=== PATIENT | female | born 1975 | race Two or more races ===

== ENCOUNTER 2017-05-31 19:40 | Emergency (ER) | payer SELFPAY ==
[~2017-05-31] VITALS: Ht 149.9 cm; Wt 59.9 kg
[~2017-05-31 19:40] MED LIST: OXYC-323 PO
[2017-05-31 20:50] LABS: BASO % 1 % (0-3); EOS % 2 % (0-3); HEMATOCRIT 32.6 % (36.0-47.0); HEMOGLOBIN 9.9 g/dL (12.0-15.5); LYMPH # 2.4 x10^3/uL (1.0-4.8); LYMPH % 30 % (24-48); MEAN CORPUSCULAR HEMOGLOBIN 22 pg (25-35); MEAN CORPUSCULAR HGB CONC 30 g/dL (31-37); MEAN CORPUSCULAR VOLUME 73 fL (79-100); MONO % 8 % (0-9); NEUT % 59 % (31-73); PLATELET COUNT 260 x10^3/uL (140-400); RED BLOOD COUNT 4.44 x10^6/uL (3.50-5.40); RED CELL DISTRIBUTION WIDTH 18.1 % (11.5-14.5); WHITE BLOOD COUNT 8.1 x10^3/uL (4.0-11.0)
[2017-05-31 20:52] LABS: BILIRUBIN,URINE NEGATIVE (NEG); GLUCOSE,URINE NEGATIVE (NEG); NITRITE,URINE NEGATIVE (NEG); PROTEIN,URINE NEGATIVE (NEG-TRACE); UROBILINOGEN,URINE 0.2 mg/dL (0.2 mg/dL)
[2017-05-31 21:00] LABS: CALCIUM 8.8 mg/dL (8.5-10.1); CREATININE 0.9 mg/dL (0.6-1.0); GFR 69.3; POTASSIUM 3.6 mmol/L (3.5-5.1)
[2017-05-31] MEDS ORDERED: IV NORMAL SALINE 1000ML BAG 1,000 ML IV SCH (21:00)
[2017-05-31] MEDS ORDERED: KETOROLAC 30 MG/ML INJ. IV ONE (21:00)
[2017-05-31 21:04] LABS: BACTERIA,URINE FEW /HPF (0-FEW); SQUAMOUS EPITHELIAL CELL,UR MOD /LPF; WBC,URINE OCC /HPF (0-4)
[2017-05-31 21:05] LABS: YEAST,URINE PRESENT /HPF
[2017-05-31 21:05] LABS: ALBUMIN 3.8 g/dL (3.4-5.0); TOTAL BILIRUBIN 0.2 mg/dL (0.2-1.0); TOTAL PROTEIN 7.8 g/dL (6.4-8.2)
[2017-05-31 21:20] LABS: PLT ESTIMATE ADEQUATE (ADEQUATE)
[2017-05-31 21:21] LABS: ANISOCYTOSIS SLIGHT; HYPOCHROMIA SLIGHT; MICROCYTOSIS SLIGHT
[2017-05-31 22:30] VITALS: BP 119/76
--- NOTE | 2017-05-31 23:18 | RAD ---
Pelvic Sonogram Complete Clinical History: Pelvic pain. LMP 04/25/17. Transabdominal scans were performed. The uterus is normal in size. A small nabothian cyst is seen in the cervix. No myometrial mass is seen. The endometrial echo is thickened measuring 1.8 cm AP. Both ovaries are normal in size and show no cystic or solid mass. Blood flow is seen to both ovaries. No free pelvic fluid is seen. IMPRESSION: The endometrial echo is thickened. This is probably physiologic in a patient of this age. The pelvic sonogram is otherwise normal. Electronically signed by: Marian Horner MD (05/31/2017 11:16 PM) [facility]
[2017-05-31] MEDS ORDERED: IBUP-1060 PO (23:47)
--- NOTE | 2017-05-31 23:47 | PHYS DOC ---
Past Medical History Past Medical History: No Pertinent History Past Surgical History: Cholecystectomy, Alcohol Use: None Drug Use: None Adult General Chief Complaint Chief Complaint: ABDOMINAL PAIN HPI HPI Patient is a 41 year old female who complains of low back pain across both sides of her low back, and abdominal pain across her lower abdomen on both sides , for about one week. She has never had pain like this before. She denies UTI symptoms. Her last bowel movement was today. She does have somewhat heavy menstrual periods. She denies fever. Patient has had cholecystectomy and 3 C-sections. Patient is in good general health. She does not have a primary care or [facility] M[facility] OPER[facility] physician. Review of Systems Review of Systems Constitutional: Denies fever or chills [] GI: Denies nausea, vomiting, bloody stools or diarrhea [] : Denies dysuria or hematuria [] Current Medications Current Medications Current Medications Medications (Trade) Dose Ordered Sig/Trina Start Time Stop Time Status Last Admin Dose Admin Ketorolac Tromethamine (Toradol) 30 mg 1X ONCE 05/31/17 21:00 05/31/17 21:01 DC 05/31/17 21:00 30 MG Sodium Chloride 1,000 ml @ 1,000 mls/hr Q1H 05/31/17 21:00 05/31/17 21:59 DC 05/31/17 21:15 1,000 MLS/HR Allergies Allergies Allergies Coded Allergies Type Severity Reaction Last Updated Verified No Known Drug Allergies 11/23/14 No Physical Exam Physical Exam Constitutional: Well developed, well nourished, alert, mentating normally, warm and dry. Appears somewhat uncomfortable. HENT: Normocephalic, atraumatic, bilateral external ears normal, nose normal. [ ] Eyes: conjunctiva normal, no discharge. [] Neck: Normal range of motion, no stridor. [] Cardiovascular:Heart rate regular rhythm, no murmur [] Lungs & Thorax: Bilateral breath sounds clear to auscultation [] Abdomen: Bowel sounds normal, soft, nondistended, no masses, no pulsatile masses. Mildly tender to palpation suprapubic and bilateral lower quadrants, nonlocalized, no rebound or guarding. Back: Patient indicates the area of pain across her lower back at approximately L3/4/5 level. There is no area that is significantly tender to palpation. No overlying skin abnormality or skin color change. Skin: Warm, dry, no erythema, no rash. [] Extremities: No tenderness, no cyanosis, no clubbing, ROM intact, no edema. [] Neurologic: Alert and oriented X 3, normal motor function, normal sensory function, no focal deficits noted. [] Current Patient Data Vital Signs Vital Signs Date Time Temp Pulse Resp B/P (MAP) Pulse Ox O2 Delivery O2 Flow Rate FiO2 05/31/17 22:30 70 18 119/76 (90) 98 Room Air 05/31/17 20:25 98.2 98.2 Lab Values Laboratory Tests Test 05/31/17 20:15 05/31/17 20:25 05/31/17 20:29 Urine Collection Type Unknown Urine Color Yellow Urine Clarity Clear Urine pH 6.0 Urine Specific [place] 1.010 Urine Protein Negative mg/dL (NEG-TRACE) Urine Glucose (UA) Negative mg/dL (NEG) Urine Ketones (Stick) Negative mg/dL (NEG) Urine Blood Negative (NEG) Urine Nitrite Negative (NEG) Urine Bilirubin Negative (NEG) Urine Urobilinogen Dipstick 0.2 mg/dL (0.2 mg/dL) Urine Leukocyte Esterase Negative (NEG) Urine RBC 1-2 /HPF (0-2) Urine WBC Occ /HPF (0-4) Urine Squamous Epithelial Cells Mod /LPF Urine Bacteria Few /HPF (0-FEW) Urine Yeast Present /HPF White Blood Count 8.1 x10^3/uL (4.0-11.0) Red Blood Count 4.44 x10^6/uL (3.50-5.40) Hemoglobin 9.9 g/dL (12.0-15.5) L Hematocrit 32.6 % (36.0-47.0) L Mean Corpuscular Volume 73 fL (79-100) L Mean Corpuscular Hemoglobin 22 pg (25-35) L Mean Corpuscular Hemoglobin Concent 30 g/dL (31-37) L Red Cell Distribution Width 18.1 % (11.5-14.5) H Platelet Count 260 x10^3/uL (140-400) Neutrophils (%) (Auto) 59 % (31-73) Lymphocytes (%) (Auto) 30 % (24-48) Monocytes (%) (Auto) 8 % (0-9) Eosinophils (%) (Auto) 2 % (0-3) Basophils (%) (Auto) 1 % (0-3) Neutrophils # (Auto) 4.8 x10^3uL (1.8-7.7) Lymphocytes # (Auto) 2.4 x10^3/uL (1.0-4.8) Monocytes # (Auto) 0.7 x10^3/uL (0.0-1.1) Eosinophils # (Auto) 0.2 x10^3/uL (0.0-0.7) Basophils # (Auto) 0.0 x10^3/uL (0.0-0.2) Platelet Estimate Adequate (ADEQUATE) Hypochromasia Slight Anisocytosis Slight Microcytosis Slight Sodium Level 141 mmol/L (136-145) Potassium Level 3.6 mmol/L (3.5-5.1) Chloride Level 106 mmol/L (98-107) Carbon Dioxide Level 26 mmol/L (21-32) Anion Gap 9 (6-14) Blood Urea Nitrogen 18 mg/dL (7-20) Creatinine 0.9 mg/dL (0.6-1.0) Estimated GFR (Cockcroft-Gault) 69.3 BUN/Creatinine Ratio 20 (6-20) Glucose Level 76 mg/dL (70-99) Calcium Level 8.8 mg/dL (8.5-10.1) Total Bilirubin 0.2 mg/dL (0.2-1.0) Aspartate Amino Transferase (AST) 17 U/L (15-37) Alanine Aminotransferase (ALT) 18 U/L (14-59) Alkaline Phosphatase 104 U/L (46-116) Total Protein 7.8 g/dL (6.4-8.2) Albumin 3.8 g/dL (3.4-5.0) Albumin/Globulin Ratio 1.0 (1.0-1.7) Lipase 192 U/L (73-393) POC Urine HCG, Qualitative Hcg negative (Negative) Laboratory Tests 05/31/17 20:25 Laboratory Tests 05/31/17 20:25 EKG EKG [] Radiology/Procedures Radiology/Procedures Pelvic ultrasound read by the radiologist. No acute findings.[] Course & Med Decision Making Course & Med Decision Making Pertinent Labs and Imaging studies reviewed. (See chart for details) 41-year-old female who presents with 1 week of bilateral low back pain and bilateral lower quadrant abdominal pain. Exam is relatively unremarkable. I advised the patient we will check some labs, urine, and ultrasound. She is agreeable to that plan. Patient was given IV Toradol and stated she did get some relief of her symptoms. Remarkable only for mild anemia which is likely iron deficient. No other significant lab abnormalities. Pelvic ultrasound unrevealing. I advised the patient to try some ibuprofen for a couple of days and follow-up with her [facility] M[facility] OPER[facility] doctor if not improving or if worse. See instructions for plan. Note, the patient is Vietnamese speaking and the flat screen worker from was used. [] Dragon Disclaimer Dragon Disclaimer This electronic medical record was generated, in whole or in part, using a voice recognition dictation system. Departure Departure Impression: Primary Impression: Abdominal pain, bilateral lower quadrant Disposition: 01 HOME, SELF-CARE Condition: STABLE Referrals: NO PCP (PCP) Patient Instructions: Abdominal Pain (Nonspecific) Additional Instructions: Today, we did not find any cause of your pain. We will try treating your pain with a pain/anti-inflammatory medication for a couple of days. If you get worse , return to emergency. Find out that you are anemic, your iron is probably low. This can happen because of heavy periods. Purchase souw-uvh-otwlijt iron pills and take one daily for iron replacement. Have a MOTO MIX OPERATOR checkup for heavy periods. Scripts Ibuprofen (IBUPROFEN) 800 Mg Tablet 800 MG PO PRN Q6HRS Y for PAIN, #30 TAB Prov: SOPHIE MELGAR MD 05/31/17 SOPHIE MELGAR MD May 31, 2017 23:47
== END 2017-06-01 | disposition home or self-care (01) ==
LOC: ER 19:40
DX: R10.31 Right lower quadrant pain (principal); R10.32 Left lower quadrant pain; M54.5 Low back pain; Z90.49 Acquired absence of other specified parts of digestive tract
CPT/HCPCS: 36415; 76830; 76856; 80053; 81001; 81025; 83690; 85025; 96361; 96374; 99285; J1885; J7030

== ENCOUNTER 2019-03-30 19:38 | Emergency (ER) | payer SELFPAY ==
[~2019-03-30] VITALS: Ht 149.9 cm; Wt 62.6 kg
[~2019-03-30 19:38] MED LIST changes: +IBUP-1060 PO; -OXYC-323 PO; +OXYC1TAB15 PO
[2019-03-30 20:04] LABS: BILIRUBIN,URINE NEGATIVE (NEG); CLARITY,URINE CLEAR; COLOR,URINE YELLOW; NITRITE,URINE NEGATIVE (NEG); PH,URINE 6.5; PROTEIN,URINE NEGATIVE (NEG-TRACE); UROBILINOGEN,URINE 0.2 mg/dL (0.2 mg/dL)
[2019-03-30] MEDS: IV NORMAL SALINE 1000ML BAG 1,000 ML IV ONE (20:06)
[2019-03-30 20:11] LABS: BASO # 0.1 x10^3/uL (0.0-0.2); BASO % 1 % (0-3); EOS # 0.2 x10^3/uL (0.0-0.7); EOS % 3 % (0-3); HEMATOCRIT 27.6 % (36.0-47.0); HEMOGLOBIN 8.8 g/dL (12.0-15.5); LYMPH # 2.1 x10^3/uL (1.0-4.8); LYMPH % 35 % (24-48); MEAN CORPUSCULAR HEMOGLOBIN 23 pg (25-35); MEAN CORPUSCULAR HGB CONC 32 g/dL (31-37); MEAN CORPUSCULAR VOLUME 71 fL (79-100); MONO # 0.6 x10^3/uL (0.0-1.1); MONO % 10 % (0-9); NEUT % 50 % (31-73); PLATELET COUNT 271 x10^3/uL (140-400); RED CELL DISTRIBUTION WIDTH 18.7 % (11.5-14.5)
[2019-03-30 20:21] LABS: BACTERIA,URINE FEW /HPF (0-FEW)
[2019-03-30 20:22] LABS: SQUAMOUS EPITHELIAL CELL,UR MOD /LPF
[2019-03-30 20:24] LABS: CALCIUM 8.7 mg/dL (8.5-10.1); CREATININE 0.7 mg/dL (0.6-1.0); GFR 91.8; POTASSIUM 3.6 mmol/L (3.5-5.1)
[2019-03-30 20:31] LABS: ALBUMIN 3.7 g/dL (3.4-5.0); ALBUMIN/GLOBULIN RATIO 0.9 (1.0-1.7); TOTAL BILIRUBIN 0.2 mg/dL (0.2-1.0); TOTAL PROTEIN 7.7 g/dL (6.4-8.2)
[2019-03-30 20:46] LABS: ANISOCYTOSIS SLIGHT; HYPOCHROMIA MOD; MICROCYTOSIS SLIGHT; PLT ESTIMATE ADEQUATE (ADEQUATE)
--- NOTE | 2019-03-30 22:20 | RAD ---
Ultrasound pelvis complete and transvaginal ultrasound pelvis: History heavy vaginal bleeding. Sonographic examination was performed of the pelvis by transabdominal and endovaginal technique multiple static images were obtained. Ultrasound pelvis complete transabdominal: The endometrium is fluid-filled and measures 11 mm in thickness. The maternal left ovary appears normal with normal blood flow and measures 2.1 x 2.4 x 1.4 cm. The right ovary appears normal normal blood flow measures 2.7 x 1.3 x 2.3 cm. Transvaginal ultrasound pelvis: There is a debris-filled fluid in the endometrium measuring 9 mm in thickness. The endometrium measures 11 mm in thickness. There are a few echogenic foci in the endometrium which could be polyps. There is a nabothian cyst in the cervix. The ovaries appear normal with normal blood flow. There is a trace of free fluid in the pelvis. IMPRESSION: Thickened endometrium with debris-filled fluid and possible polyps. If unexplained vaginal bleeding persists biopsy should be considered. This interpretation assumes the patient is not . Electronically signed by: Timothy Holly III, MD (03/30/2019 10:17 PM) [facility]
[2019-03-30] MEDS ORDERED: MEDR5TAB PO (22:41)
[2019-03-30 22:45] VITALS: BP 116/76
--- NOTE | 2019-03-30 22:49 | PHYS DOC ---
Past Medical History Past Medical History: UTI Past Surgical History: Cholecystectomy, Alcohol Use: None Drug Use: None Adult General Chief Complaint Chief Complaint: DIZZY/LIGHT HEADED HPI HPI Patient is a 43 year old Ukrainian speaking female who presents with dizziness, headache several hours. Symptoms most pronounced while at work. Patient works in a hotel in housekeeping industry. Patient was at similar symptoms in the past and has been diagnosed with a deviated. She reports heavy menstrual bleeding monthly for 5-7 days. Her current menstrual period started 2 days ago and has been very heavy. Associated with cramping and back pain. Patient previously prescribed control she is no longer taking. She is currently scheduled to follow-up with her LADIES SUIT OPERATOR in 15 days. Denies nausea, vomiting, chest pain palpitations, shortness of breath. No fever chills or sweats. No other acute symptoms or complaints. [] Review of Systems Review of Systems Review symptoms as per history of present illness. All other review symptoms are negative. All other systems were reviewed and found to be within normal limits, except as documented in this note. Current Medications Current Medications Current Medications Medications (Trade) Dose Ordered Sig/Trina Start Time Stop Time Status Last Admin Dose Admin Sodium Chloride 1,000 ml @ 1,000 mls/hr 1X ONCE 03/30/19 20:00 03/30/19 20:59 DC 03/30/19 20:06 1,000 MLS/HR Allergies Allergies Allergies Coded Allergies Type Severity Reaction Last Updated Verified No Known Drug Allergies 11/23/14 No Physical Exam Physical Exam Constitutional: Well developed, well nourished, no acute distress, non-toxic appearance. [] HENT: Normocephalic, atraumatic, bilateral external ears normal, oropharynx moist, no oral exudates, nose normal. [] Eyes: PERRLA, EOMI, conjunctiva normal, no discharge. [] Neck: Normal range of motion, no tenderness, supple, no stridor. [] Cardiovascular:Heart rate regular rhythm, no murmur [] Lungs & Thorax: Bilateral breath sounds clear to auscultation [] Abdomen: Bowel sounds normal, soft, no tenderness. [] Skin: Warm, dry, no erythema, no rash. [] Back: No tenderness, no CVA tenderness. [] Extremities: No tenderness, no cyanosis, no clubbing, ROM intact, no edema. [] Neurologic: Alert and oriented X 3, normal motor function, normal sensory function, no focal deficits noted. [] Psychologic: Affect normal, judgement normal, mood normal. [] Current Patient Data Vital Signs Vital Signs Date Time Temp Pulse Resp B/P (MAP) Pulse Ox O2 Delivery O2 Flow Rate FiO2 03/30/19 19:52 98.3 71 18 138/62 (87) 100 Room Air 98.3 Lab Values Laboratory Tests Test 03/30/19 19:55 03/30/19 19:58 03/30/19 19:59 Urine Collection Type Unknown Urine Color Yellow Urine Clarity Clear Urine pH 6.5 Urine Specific [place] <=1.005 Urine Protein Negative mg/dL (NEG-TRACE) Urine Glucose (UA) Negative mg/dL (NEG) Urine Ketones (Stick) Negative mg/dL (NEG) Urine Blood Moderate (NEG) Urine Nitrite Negative (NEG) Urine Bilirubin Negative (NEG) Urine Urobilinogen Dipstick 0.2 mg/dL (0.2 mg/dL) Urine Leukocyte Esterase Negative (NEG) Urine RBC 1-2 /HPF (0-2) Urine WBC 1-4 /HPF (0-4) Urine Squamous Epithelial Cells Mod /LPF Urine Bacteria Few /HPF (0-FEW) POC Urine HCG, Qualitative Hcg negative (Negative) White Blood Count 6.0 x10^3/uL (4.0-11.0) Red Blood Count 3.90 x10^6/uL (3.50-5.40) Hemoglobin 8.8 g/dL (12.0-15.5) L Hematocrit 27.6 % (36.0-47.0) L Mean Corpuscular Volume 71 fL (79-100) L Mean Corpuscular Hemoglobin 23 pg (25-35) L Mean Corpuscular Hemoglobin Concent 32 g/dL (31-37) Red Cell Distribution Width 18.7 % (11.5-14.5) H Platelet Count 271 x10^3/uL (140-400) Neutrophils (%) (Auto) 50 % (31-73) Lymphocytes (%) (Auto) 35 % (24-48) Monocytes (%) (Auto) 10 % (0-9) H Eosinophils (%) (Auto) 3 % (0-3) Basophils (%) (Auto) 1 % (0-3) Neutrophils # (Auto) 3.0 x10^3/uL (1.8-7.7) Lymphocytes # (Auto) 2.1 x10^3/uL (1.0-4.8) Monocytes # (Auto) 0.6 x10^3/uL (0.0-1.1) Eosinophils # (Auto) 0.2 x10^3/uL (0.0-0.7) Basophils # (Auto) 0.1 x10^3/uL (0.0-0.2) Platelet Estimate Adequate (ADEQUATE) Hypochromasia Mod Anisocytosis Slight Microcytosis Slight Sodium Level 140 mmol/L (136-145) Potassium Level 3.6 mmol/L (3.5-5.1) Chloride Level 105 mmol/L (98-107) Carbon Dioxide Level 23 mmol/L (21-32) Anion Gap 12 (6-14) Blood Urea Nitrogen 11 mg/dL (7-20) Creatinine 0.7 mg/dL (0.6-1.0) Estimated GFR (Cockcroft-Gault) 91.8 BUN/Creatinine Ratio 16 (6-20) Glucose Level 92 mg/dL (70-99) Calcium Level 8.7 mg/dL (8.5-10.1) Total Bilirubin 0.2 mg/dL (0.2-1.0) Aspartate Amino Transferase (AST) 21 U/L (15-37) Alanine Aminotransferase (ALT) 25 U/L (14-59) Alkaline Phosphatase 123 U/L (46-116) H Total Protein 7.7 g/dL (6.4-8.2) Albumin 3.7 g/dL (3.4-5.0) Albumin/Globulin Ratio 0.9 (1.0-1.7) L Laboratory Tests 03/30/19 19:59 Laboratory Tests 03/30/19 19:59 EKG EKG [] Radiology/Procedures Radiology/Procedures [Pelvic ultrasound, fluid-filled debris and irregularities in endometrial canal, questionable polyps cysts. Blood flow to both ovaries. Small amount of fluid in cul-de-sac] Course & Med Decision Making Course & Med Decision Making Pertinent Labs and Imaging studies reviewed. (See chart for details) [V fluids, medications given with symptomatic improvement. states dizziness with standing. Patient is on her feet all day. Will prescribe short course of progesterone with instructions to follow-up with [facility]ADIES SUIT OPERATOR as scheduled. Return precautions reviewed.] [place] Disclaimer Dragon Disclaimer This electronic medical record was generated, in whole or in part, using a voice recognition dictation system. Departure Departure Impression: Primary Impression: Symptomatic anemia Additional Impressions: Dysfunctional uterine bleeding Dizziness Disposition: HOME, SELF-CARE Condition: GOOD Patient Instructions: Abnormal Uterine Bleeding, Anemia, FAQs Additional Instructions: Please take as prescribed for the next 5 days to stop vaginal bleeding. Take daily multivitamin and follow-up with your LADIES SUIT OPERATOR as scheduled. Stay home and rest the next 2 days. Return to the ED if new or worsening symptoms. Scripts Medroxyprogesterone Acetate (PROVERA) 5 Mg Tablet 1 TAB PO DAILY, #5 TAB 11 Refills Prov: IVAN SALAZAR DO 03/30/19 Problem Qualifiers IVAN SALAZAR DO Mar 30, 2019 22:48
--- NOTE | 2019-03-31 07:44 | EKG ---
[facility] [address] [place] [address] Test Date: 2019-03-30 Test Time: 19:52:03 Pat Name: NAREN GLASER Department: Room: Gender: F Lease Picker: : [email or web address] Requested By: IVAN SALAZAR Order Number: [id number] Reading MD: Measurements Intervals [place] Rate: 85 P: 48 MT: 142 QRS: 28 QRSD: 88 T: 38 QT: 376 QTc: 448 Interpretive Statements SINUS RHYTHM NO SPECIFIC ECG ABNORMALITIES RI6.01 No previous ECG available for comparison
== END 2019-03-30 22:58 | disposition home or self-care (01) ==
LOC: ER 19:38
DX: D64.89 Other specified anemias (principal); N93.8 Other specified abnormal uterine and vaginal bleeding; R42 Dizziness and giddiness; R51 Headache; Z90.49 Acquired absence of other specified parts of digestive tract; Z98.890 Other specified postprocedural states
CPT/HCPCS: 36415; 76830; 76856; 80053; 81001; 81025; 85025; 93005; 96360; 99285; J7030

== ENCOUNTER 2019-04-22 13:51 | Emergency (ER) | payer SELFPAY ==
[~2019-04-22] VITALS: Ht 162.6 cm; Wt 62.6 kg
[~2019-04-22 13:51] MED LIST changes: +MEDR5TAB PO
[2019-04-22 14:22] VITALS: BP 130/67
[2019-04-22] MEDS ORDERED: IV NORMAL SALINE 1000ML BAG 1,000 ML IV SCH (14:32)
[2019-04-22] MEDS ORDERED: ONDANSETRON PF 4 MG/2 ML VIAL. IV ONE (14:45)
[2019-04-22] MEDS ORDERED: KETOROLAC 30 MG/ML VIAL. IV ONE (14:45)
[2019-04-22 14:48] LABS: BASO # 0.1 x10^3/uL (0.0-0.2); BASO % 1 % (0-3); EOS # 0.1 x10^3/uL (0.0-0.7); EOS % 2 % (0-3); HEMATOCRIT 31.7 % (36.0-47.0); HEMOGLOBIN 10.1 g/dL (12.0-15.5); LYMPH # 1.8 x10^3/uL (1.0-4.8); LYMPH % 27 % (24-48); MEAN CORPUSCULAR HEMOGLOBIN 23 pg (25-35); MEAN CORPUSCULAR HGB CONC 32 g/dL (31-37); MEAN CORPUSCULAR VOLUME 71 fL (79-100); MONO # 0.5 x10^3/uL (0.0-1.1); MONO % 8 % (0-9); NEUT # 4.1 x10^3/uL (1.8-7.7); NEUT % 62 % (31-73); PLATELET COUNT 304 x10^3/uL (140-400); RED BLOOD COUNT 4.48 x10^6/uL (3.50-5.40); RED CELL DISTRIBUTION WIDTH 18.9 % (11.5-14.5); WHITE BLOOD COUNT 6.6 x10^3/uL (4.0-11.0)
[2019-04-22 14:56] LABS: CALCIUM 9.1 mg/dL (8.5-10.1); CREATININE 0.6 mg/dL (0.6-1.0); GFR 109.6; POTASSIUM 4.3 mmol/L (3.5-5.1)
[2019-04-22 15:02] LABS: ALBUMIN 3.9 g/dL (3.4-5.0); ALBUMIN/GLOBULIN RATIO 0.9 (1.0-1.7); TOTAL BILIRUBIN 0.2 mg/dL (0.2-1.0); TOTAL PROTEIN 8.3 g/dL (6.4-8.2)
--- NOTE | 2019-04-22 15:07 | RAD ---
EXAM: Head CT without contrast. HISTORY: Headache. TECHNIQUE: Computed tomographic images of the head were obtained without contrast. *One or more of the following individualized dose reduction techniques were utilized for this examination: 1. Automated exposure control. 2. Adjustment of the mA and/or kV according to patient size. 3. Use of iterative reconstruction technique. COMPARISON: None. FINDINGS: There is no acute or subacute extra-axial or intraparenchymal hemorrhage. There is no mass effect or midline shift. There is no hydrocephalus. The [id number] matter differentiation pattern is intact. The visualized portions of the orbits, paranasal sinuses and mastoid air cells are unremarkable. No suspicious calvarial lesion is seen. IMPRESSION: No acute intracranial findings. Electronically signed by: Concha Gutierrez MD (04/22/2019 3:04 PM) [place] [id number]
[2019-04-22] MEDS ORDERED: BUTA1CAP31 PO (15:56)
[2019-04-22] MEDS ORDERED: ONDA4TAB7 PO (15:56)
--- NOTE | 2019-04-22 15:56 | PHYS DOC ---
Past Medical History Past Medical History: UTI Past Surgical History: Cholecystectomy, Alcohol Use: None Drug Use: None Adult General Chief Complaint Chief Complaint: HEADACHE HPI HPI Patient is a 43 year old Belgian speaking female who presents with complaining of headache. Patient complaining of frontal headache as a constant sharp pain for the last 4 days with nausea and photophobia without history of migraine headaches or previous headache. He denies fever and chills, neck pain, focal neuro deficit, head injury. Patient has history of chronic anemia and seen by her doctor today regarding anemia but decided to come to emergency room for headache. Patient rated her pain 10 over 10. Review of Systems Review of Systems Constitutional: Denies fever or chills [] Eyes: Denies change in visual acuity, redness, or eye pain [] HENT: Denies nasal congestion or sore throat [] Respiratory: Denies cough or shortness of breath [] Cardiovascular: No additional information not addressed in HPI [] GI: Denies abdominal pain, vomiting, bloody stools or diarrhea, reports nausea [] : Denies dysuria or hematuria [] Musculoskeletal: Denies back pain or joint pain [] Integument: Denies rash or skin lesions [] Neurologic: Reports headache, denies focal weakness or sensory changes [] Endocrine: Denies polyuria or polydipsia [] All other systems were reviewed and found to be within normal limits, except as documented in this note. Current Medications Current Medications Current Medications Medications (Trade) Dose Ordered Sig/Trina Start Time Stop Time Status Last Admin Dose Admin Acetaminophen/ Hydrocodone Bitart (Lortab 5/325) 1 tab 1X ONCE 04/22/19 16:00 04/22/19 16:01 Ketorolac Tromethamine (Toradol 30mg Vial) 30 mg 1X ONCE 04/22/19 14:45 04/22/19 14:46 DC 04/22/19 14:46 30 MG Ondansetron HCl (Zofran) 4 mg 1X ONCE 04/22/19 14:45 04/22/19 14:46 DC 04/22/19 14:46 4 MG Sodium Chloride 1,000 ml @ 1,000 mls/hr Q1H 04/22/19 14:32 04/22/19 15:31 DC 04/22/19 14:46 1,000 MLS/HR Allergies Allergies Allergies Coded Allergies Type Severity Reaction Last Updated Verified No Known Drug Allergies 11/23/14 No Physical Exam Physical Exam Constitutional: Well developed, well nourished, mild distress, non-toxic appearance. [] HENT: Normocephalic, atraumatic, bilateral external ears normal, oropharynx [address], no oral exudates, nose normal. [] Eyes: PERRLA, EOMI, conjunctiva normal, no discharge. [] Neck: Normal range of motion, no tenderness, supple, no stridor, no neck stiffness or meningeal sign. [] Cardiovascular:Heart rate regular rhythm, no murmur [] Lungs & Thorax: Bilateral breath sounds clear to auscultation [] Abdomen: Bowel sounds normal, soft, no tenderness, no masses, no pulsatile masses. [] Skin: Warm, dry, no erythema, no rash. [] Back: No tenderness, no CVA tenderness. [] Extremities: No tenderness, no cyanosis, no clubbing, ROM intact, no edema. [] Neurologic: Alert and oriented X 3, normal motor function, normal sensory function, no focal deficits noted. [] Psychologic: Affect normal, judgement normal, mood normal. [] Current Patient Data Vital Signs Vital Signs Date Time Temp Pulse Resp B/P (MAP) Pulse Ox O2 Delivery O2 Flow Rate FiO2 04/22/19 14:22 98.9 85 16 130/67 (88) 100 Room Air 98.9 Lab Values Laboratory Tests Test 04/22/19 14:40 White Blood Count 6.6 x10^3/uL (4.0-11.0) Red Blood Count 4.48 x10^6/uL (3.50-5.40) Hemoglobin 10.1 g/dL (12.0-15.5) L Hematocrit 31.7 % (36.0-47.0) L Mean Corpuscular Volume 71 fL (79-100) L Mean Corpuscular Hemoglobin 23 pg (25-35) L Mean Corpuscular Hemoglobin Concent 32 g/dL (31-37) Red Cell Distribution Width 18.9 % (11.5-14.5) H Platelet Count 304 x10^3/uL (140-400) Neutrophils (%) (Auto) 62 % (31-73) Lymphocytes (%) (Auto) 27 % (24-48) Monocytes (%) (Auto) 8 % (0-9) Eosinophils (%) (Auto) 2 % (0-3) Basophils (%) (Auto) 1 % (0-3) Neutrophils # (Auto) 4.1 x10^3/uL (1.8-7.7) Lymphocytes # (Auto) 1.8 x10^3/uL (1.0-4.8) Monocytes # (Auto) 0.5 x10^3/uL (0.0-1.1) Eosinophils # (Auto) 0.1 x10^3/uL (0.0-0.7) Basophils # (Auto) 0.1 x10^3/uL (0.0-0.2) Platelet Estimate Pending Sodium Level 141 mmol/L (136-145) Potassium Level 4.3 mmol/L (3.5-5.1) Chloride Level 105 mmol/L (98-107) Carbon Dioxide Level 25 mmol/L (21-32) Anion Gap 11 (6-14) Blood Urea Nitrogen 9 mg/dL (7-20) Creatinine 0.6 mg/dL (0.6-1.0) Estimated GFR (Cockcroft-Gault) 109.6 BUN/Creatinine Ratio 15 (6-20) Glucose Level 103 mg/dL (70-99) H Calcium Level 9.1 mg/dL (8.5-10.1) Total Bilirubin 0.2 mg/dL (0.2-1.0) Aspartate Amino Transferase (AST) 24 U/L (15-37) Alanine Aminotransferase (ALT) 62 U/L (14-59) H Alkaline Phosphatase 132 U/L (46-116) H Total Protein 8.3 g/dL (6.4-8.2) H Albumin 3.9 g/dL (3.4-5.0) Albumin/Globulin Ratio 0.9 (1.0-1.7) L Laboratory Tests 04/22/19 14:40 Laboratory Tests 04/22/19 14:40 EKG EKG [] Radiology/Procedures Radiology/Procedures [][facility] [address] [place] [address] IMAGING REPORT Signed PATIENT: NAREN MC RACCOUNT: [id number] : 1975 LOCATION: ER AGE: 43 SEX: F EXAM STATUS: REG ER ORD. PHYSICIAN: VIPIN FRANKLIN MD REASON: headache PROCEDURE: CT HEAD WO CONTRAST EXAM: Head CT without contrast. HISTORY: Headache. TECHNIQUE: Computed tomographic images of the head were obtained without contrast. *One or more of the following individualized dose reduction techniques were utilized for this examination: 1. Automated exposure control. 2. Adjustment of the mA and/or kV according to patient size. 3. Use of iterative reconstruction technique. COMPARISON: None. FINDINGS: There is no acute or subacute extra-axial or intraparenchymal hemorrhage. There is no mass effect or midline shift. There is no hydrocephalus. The [id number] matter differentiation pattern is intact. The visualized portions of the orbits, paranasal sinuses and mastoid air cells are unremarkable. No suspicious calvarial lesion is seen. IMPRESSION: No acute intracranial findings. Electronically signed by: Concha Gutierrez MD (04/22/2019 3:04 PM) [place] [id number] DICTATED and SIGNED BY: CONCHA GUTIERREZ MD DATE: 04/22/19 1504 Course & Med Decision Making Course & Med Decision Making Pertinent Labs and Imaging studies reviewed. (See chart for details) Evaluation of patient in ER showed 43-year-old patient with complaining of headache for 4 days without history of headache. Patient had unremarkable physical exam and CT head. Labs showed hemoglobin of 10 with history of anemia and mild elevation of liver function tests. Patient already has been following up with her primary care physician regarding anemia. Patient felt better with treatment in ER. Plan discharge patient home with diagnosis of headache and instruction to increase fluid intake and follow up with primary care physician. [place] Disclaimer Dragon Disclaimer This electronic medical record was generated, in whole or in part, using a voice recognition dictation system. Departure Departure Impression: Primary Impression: Headache Additional Impressions: Chronic anemia Elevated liver function tests Disposition: HOME, SELF-CARE (@5254) Condition: IMPROVED Referrals: NO PCP (PCP) Patient Instructions: Anemia, FAQs, General Headache Without Cause Additional Instructions: Drink plenty of liquids Follow-up with your primary care physician in 3-5 days Return to ER if not getting better Scripts Butalbital/Aspirin/Caffeine (FIORINAL 50-325-40 MG CAPSULE) 1 Each Capsule 1 EACH PO QID, #10 CAP Prov: VIPIN FRANKLIN MD 04/22/19 Ondansetron Hcl (ZOFRAN) 4 Mg Tablet 1 TAB PO PRN Q6-8HRS for nausea, #12 TAB Prov: VIPIN FRANKLIN MD 04/22/19 Problem Qualifiers Primary Impression: Headache Headache type: unspecified Headache chronicity pattern: unspecified pattern Intractability: not intractable Qualified Codes: R51 - Headache VIPIN FRANKLIN MD Apr 22, 2019 15:56
[2019-04-22] MEDS ORDERED: HYDROcodone/APAP 5/325MG 1 TAB TABLET PO ONE (16:00)
[2019-04-22 17:03] LABS: PLT ESTIMATE ADEQUATE (ADEQUATE)
[2019-04-22 17:04] LABS: ANISOCYTOSIS SLIGHT; HYPOCHROMIA SLIGHT; MICROCYTOSIS SLIGHT
== END 2019-04-22 16:43 | disposition home or self-care (01) ==
LOC: ER 13:51
DX: R51 Headache (principal); D64.9 Anemia, unspecified; R94.5 Abnormal results of liver function studies
CPT/HCPCS: 36415; 70450; 80053; 81025; 85025; 96374; 96375; 99285; J1885; J2405; J7030

== ENCOUNTER 2019-12-10 21:00 | Emergency (ER) | payer SELFPAY ==
[~2019-12-10] VITALS: Ht 149.9 cm; Wt 65.0 kg
[~2019-12-10 21:00] MED LIST changes: +BUTA1CAP31 PO; +ONDA4TAB7 PO
[2019-12-10 21:29] LABS: BASO # 0.1 x10^3/uL (0.0-0.2); BASO % 1 % (0-3); EOS # 0.3 x10^3/uL (0.0-0.7); EOS % 3 % (0-3); HEMATOCRIT 33.6 % (36.0-47.0); LYMPH # 3.2 x10^3/uL (1.0-4.8); LYMPH % 31 % (24-48); MEAN CORPUSCULAR HEMOGLOBIN 26 pg (25-35); MEAN CORPUSCULAR HGB CONC 33 g/dL (31-37); MEAN CORPUSCULAR VOLUME 80 fL (79-100); MONO # 0.9 x10^3/uL (0.0-1.1); MONO % 8 % (0-9); NEUT # 5.8 x10^3/uL (1.8-7.7); NEUT % 57 % (31-73); PLATELET COUNT 246 x10^3/uL (140-400); RED BLOOD COUNT 4.19 x10^6/uL (3.50-5.40); RED CELL DISTRIBUTION WIDTH 17.3 % (11.5-14.5); WHITE BLOOD COUNT 10.2 x10^3/uL (4.0-11.0)
[2019-12-10] MEDS ORDERED: KETOROLAC 30 MG/ML VIAL. IVP ONE (21:30)
[2019-12-10] MEDS ORDERED: IV NORMAL SALINE 1000ML BAG 1,000 ML IV SCH (21:30)
[2019-12-10 21:45] LABS: CALCIUM 8.9 mg/dL (8.5-10.1); CREATININE 0.8 mg/dL (0.6-1.0); GFR 78.3; POTASSIUM 3.8 mmol/L (3.5-5.1)
[2019-12-10 21:51] LABS: ALBUMIN 3.4 g/dL (3.4-5.0); ALBUMIN/GLOBULIN RATIO 0.8 (1.0-1.7); TOTAL BILIRUBIN 0.1 mg/dL (0.2-1.0); TOTAL PROTEIN 7.5 g/dL (6.4-8.2)
[2019-12-10 21:52] LABS: BILIRUBIN,URINE NEGATIVE (NEG); CLARITY,URINE CLEAR; COLOR,URINE YELLOW; NITRITE,URINE NEGATIVE (NEG); PH,URINE 6.5 (<5.0-8.0); PROTEIN,URINE NEGATIVE (NEG-TRACE); UROBILINOGEN,URINE 0.2 mg/dL (0.2 mg/dL)
[2019-12-10 21:56] LABS: SQUAMOUS EPITHELIAL CELL,UR MOD /LPF
[2019-12-10 21:57] LABS: BACTERIA,URINE FEW /HPF (0-FEW)
--- NOTE | 2019-12-10 22:34 | PHYS DOC ---
Past Medical History Past Medical History: Anemia, UTI Past Surgical History: Cholecystectomy, Smoking Status: Never Smoker Alcohol Use: None Drug Use: None Adult General Chief Complaint Chief Complaint: CHEST PAIN HPI HPI Patient is a 44 year old female who presents with complaint of chest pain as well as headache. Patient states that headache is been present for the last 8 days. She relates a lot of pressure in her head. She also reports that she has had chest discomfort in the middle of her chest for about the last 30 minutes. She states that she is also had some shortness of breath. Patient does admit to a cough for the last couple of days. She denies any fever. She also denies any nausea, vomiting or diarrhea.[] Review of Systems Review of Systems Constitutional: Denies fever or chills [] Respiratory: Positive cough and shortness of breath [] Cardiovascular: No additional information not addressed in HPI [] GI: Denies abdominal pain, nausea, vomiting or diarrhea [] Integument: Denies rash or skin lesions [] Neurologic: Denies headache, focal weakness or sensory changes [] All other systems were reviewed and found to be within normal limits, except as documented in this note. Current Medications Current Medications Current Medications Medications (Trade) Dose Ordered Sig/Trina Start Time Stop Time Status Last Admin Dose Admin Ketorolac Tromethamine (Toradol 30mg Vial) 30 mg 1X ONCE 12/10/19 21:30 12/10/19 21:31 DC 12/10/19 21:42 30 MG Sodium Chloride 1,000 ml @ 1,000 mls/hr Q1H 12/10/19 21:30 12/10/19 22:29 DC 12/10/19 21:41 1,000 MLS/HR Allergies Allergies Allergies Coded Allergies Type Severity Reaction Last Updated Verified No Known Drug Allergies 11/23/14 No Physical Exam Physical Exam Constitutional: Well developed, well nourished, no acute distress, non-toxic appearance. [] HENT: Normocephalic, atraumatic, bilateral external ears normal, oropharynx moist, no oral exudates, nose normal. [] Eyes: PERRLA, EOMI, conjunctiva normal, no discharge. [] Neck: Normal range of motion, no tenderness, supple, no stridor. [] Cardiovascular: Regular rate and rhythm[] Lungs & Thorax: Bilateral breath sounds clear to auscultation [] Abdomen: Bowel sounds normal, soft, no tenderness. [] Skin: Warm, dry, no erythema, no rash. [] Extremities: No tenderness, no cyanosis, no clubbing, ROM intact, no edema. [] Neurologic: Alert and oriented X 3, normal motor function, normal sensory function, no focal deficits noted. [] Current Patient Data Vital Signs Vital Signs Date Time Temp Pulse Resp B/P (MAP) Pulse Ox O2 Delivery O2 Flow Rate FiO2 12/10/19 21:05 98.5 81 16 140/76 (97) Room Air 98.5 Lab Values Laboratory Tests Test 12/10/19 21:20 12/10/19 21:45 12/10/19 21:46 White Blood Count 10.2 x10^3/uL (4.0-11.0) Red Blood Count 4.19 x10^6/uL (3.50-5.40) Hemoglobin 11.0 g/dL (12.0-15.5) L Hematocrit 33.6 % (36.0-47.0) L Mean Corpuscular Volume 80 fL (79-100) Mean Corpuscular Hemoglobin 26 pg (25-35) Mean Corpuscular Hemoglobin Concent 33 g/dL (31-37) Red Cell Distribution Width 17.3 % (11.5-14.5) H Platelet Count 246 x10^3/uL (140-400) Neutrophils (%) (Auto) 57 % (31-73) Lymphocytes (%) (Auto) 31 % (24-48) Monocytes (%) (Auto) 8 % (0-9) Eosinophils (%) (Auto) 3 % (0-3) Basophils (%) (Auto) 1 % (0-3) Neutrophils # (Auto) 5.8 x10^3/uL (1.8-7.7) Lymphocytes # (Auto) 3.2 x10^3/uL (1.0-4.8) Monocytes # (Auto) 0.9 x10^3/uL (0.0-1.1) Eosinophils # (Auto) 0.3 x10^3/uL (0.0-0.7) Basophils # (Auto) 0.1 x10^3/uL (0.0-0.2) D-Dimer (Becka) 0.47 ug/mlFEU (0.00-0.50) Sodium Level 142 mmol/L (136-145) Potassium Level 3.8 mmol/L (3.5-5.1) Chloride Level 107 mmol/L (98-107) Carbon Dioxide Level 24 mmol/L (21-32) Anion Gap 11 (6-14) Blood Urea Nitrogen 11 mg/dL (7-20) Creatinine 0.8 mg/dL (0.6-1.0) Estimated GFR (Cockcroft-Gault) 78.3 BUN/Creatinine Ratio 14 (6-20) Glucose Level 85 mg/dL (70-99) Calcium Level 8.9 mg/dL (8.5-10.1) Magnesium Level 2.0 mg/dL (1.8-2.4) Total Bilirubin 0.1 mg/dL (0.2-1.0) L Aspartate Amino Transferase (AST) 24 U/L (15-37) Alanine Aminotransferase (ALT) 31 U/L (14-59) Alkaline Phosphatase 127 U/L (46-116) H Troponin I Quantitative < 0.017 ng/mL (0.000-0.055) GP-May-Z-Type Natriuretic Peptide 87 pg/mL (0-124) Total Protein 7.5 g/dL (6.4-8.2) Albumin 3.4 g/dL (3.4-5.0) Albumin/Globulin Ratio 0.8 (1.0-1.7) L Urine Collection Type Unknown Urine Color Yellow Urine Clarity Clear Urine pH 6.5 (<5.0-8.0) Urine Specific [place] 1.010 (1.000-1.030) Urine Protein Negative mg/dL (NEG-TRACE) Urine Glucose (UA) Negative mg/dL (NEG) Urine Ketones (Stick) Negative mg/dL (NEG) Urine Blood Trace (NEG) Urine Nitrite Negative (NEG) Urine Bilirubin Negative (NEG) Urine Urobilinogen Dipstick 0.2 mg/dL (0.2 mg/dL) Urine Leukocyte Esterase Negative (NEG) Urine RBC 1-2 /HPF (0-2) Urine WBC 1-4 /HPF (0-4) Urine Squamous Epithelial Cells Mod /LPF Urine Bacteria Few /HPF (0-FEW) Urine Mucus Slight /LPF POC Urine HCG, Qualitative Hcg negative (Negative) Laboratory Tests 12/10/19 21:20 Laboratory Tests 12/10/19 21:20 EKG EKG EKG demonstrates normal sinus rhythm with rate of 87.[] Radiology/Procedures Radiology/Procedures [] Impressions: PROCEDURE: CT HEAD WO CONTRAST CT scan of the head without contrast 12/10/2019 Clinical History: Headaches.. Technique: Unenhanced, contiguous, 5 mm axial sections were obtained through the head. One or more of the following individualized dose reduction techniques were utilized for this study: 1. Automated exposure control. 2. Adjustment of the mA and/or kV according to patient size. 3. Use of iterative reconstruction technique. Findings: Comparison study is dated 04/22/2019. The ventricles and sulci are within normal limits in size and configuration. No focal area of abnormal attenuation is seen involving the brain parenchyma. No extra-axial fluid collection is seen. No skull fracture is seen. Impression: Negative study. Electronically signed by: Vel Nicholas MD (12/10/2019 10:52 PM) [id number] Course & Med Decision Making Course & Med Decision Making Pertinent Labs and Imaging studies reviewed. (See chart for details) [] Dragon Disclaimer Dragon Disclaimer This electronic medical record was generated, in whole or in part, using a voice recognition dictation system. Departure Departure Impression: Primary Impression: Headache Additional Impressions: Upper respiratory infection Chest wall pain Disposition: HOME, SELF-CARE Condition: STABLE Referrals: NO PCP (PCP) Patient Instructions: Chest Wall Pain, General Headache Without Cause, Upper Respiratory Infection, Adult Scripts Azithromycin (ZITHROMAX) 250 Mg Tablet 1 PKG PO UD, #6 TAB Prov: SANDRO PULIDO Jr. DO 12/10/19 Problem Qualifiers Primary Impression: Headache Headache type: unspecified Headache chronicity pattern: acute headache Intractability: not intractable Qualified Codes: R51 - Headache Additional Impressions: Upper respiratory infection URI type: unspecified viral URI Qualified Codes: J06.9 - Acute upper respiratory infection, unspecified SANDRO PULIDO Jr. DO Dec 10, 2019 22:34
--- NOTE | 2019-12-10 22:54 | RAD ---
CT scan of the head without contrast 12/10/2019 Clinical History: Headaches.. Technique: Unenhanced, contiguous, 5 mm axial sections were obtained through the head. One or more of the following individualized dose reduction techniques were utilized for this study: 1. Automated exposure control. 2. Adjustment of the mA and/or kV according to patient size. 3. Use of iterative reconstruction technique. Findings: Comparison study is dated 04/22/2019. The ventricles and sulci are within normal limits in size and configuration. No focal area of abnormal attenuation is seen involving the brain parenchyma. No extra-axial fluid collection is seen. No skull fracture is seen. Impression: Negative study. Electronically signed by: Vel Nicholas MD (12/10/2019 10:52 PM) [id number]
[2019-12-10] MEDS ORDERED: AZIT250T PO (23:43)
[2019-12-10 23:50] VITALS: BP 117/81
--- NOTE | 2019-12-10 23:53 | RAD ---
INDICATION: Chest pain COMPARISON: None. FINDINGS: Single view of chest obtained. Cardiac silhouette is unremarkable. No definite focal airspace consolidation or pulmonary edema. IMPRESSION: * No focal airspace consolidation or edema. Electronically signed by: Gavino Zelaya MD (12/10/2019 11:50 PM) [id number]
--- NOTE | 2019-12-11 18:23 | EKG ---
[facility] [address] [place] [address] Test Date: 2019-12-10 Test Time: 21:08:43 Pat Name: NAREN MC Department: Room: Gender: F [employer] Gauger: : 1975 Requested By: SANDRO PULIDO Order Number: [id number] Reading MD: Measurements Intervals [place] Rate: 87 P: 33 ND: 126 QRS: 1 QRSD: 92 T: 37 QT: 362 QTc: 436 Interpretive Statements SINUS RHYTHM T ABNORMALITY IN ANTEROSEPTAL LEADS ABNORMAL ECG RI6.01 No previous ECG available for comparison
== END 2019-12-10 23:55 | disposition home or self-care (01) ==
LOC: ER 21:00
DX: J06.9 Acute upper respiratory infection, unspecified (principal); R07.89 Other chest pain; R51 Headache; Z90.49 Acquired absence of other specified parts of digestive tract; Z98.890 Other specified postprocedural states
CPT/HCPCS: 36415; 70450; 71045; 80053; 81001; 81025; 83735; 83880; 84484; 85025; 85379; 93005; 96374; 99285; J1885; J7030